=== PATIENT | female | born 1980 | race American Indian/Alaskan Native ===

== ENCOUNTER 2017-07-08 10:17 | Day surgery (SDC) | payer MEDICAID ==
[2017-07-08] MEDS ORDERED: HURRICAINE ONE 20% TOPICAL SPRAY MM NR (11:00)
--- NOTE | 2017-07-08 11:51 | Anesthesia Day of Surgery ---
Anesthesia Day of Surgery - Day of Surgery Patient Examined: Yes Patient H&P Reviewed: Yes Patient is NPO: Yes Beta Blockers: Yes
--- NOTE | 2017-07-08 11:51 | Anesthesia Consultation ---
Anesthesia Consult and Med Hx Date of service: 07/08/17 - Airway Anesthetic Teeth Evaluation: Good ROM Head & Neck: Adequate Mental/Hyoid Distance: Adequate Mallampati Class: Class II Intubation Access Assessment: Probably Good - Pulmonary Exam CTA: Yes - Cardiac Exam Cardiac Exam: RRR - Pre-Operative Health Status ASA Pre-Surgery Classification: ASA3 Proposed Anesthetic Plan: MAC - Pulmonary Hx Smoking: Yes Hx Asthma: No COPD: No Hx Pneumonia: Yes Hx Sleep Apnea: Yes - Cardiovascular System Hx Hypertension: Yes Hx Valvular Heart Disease: Yes (SEVERE MITRAL REGURG) Hx Heart Murmur: Yes (mitral valve regurgitation) - Central Nervous System Hx Psychiatric Problems: No - Endocrine Hx End Stage Renal Disease: No - Hematic Hx Anemia: Yes - Other Systems Hx Cancer: No Hx Obesity: Yes
[2017-07-08] MEDS ORDERED: NACL 0.9% 500 ML 500 ML IV SCH (12:00)
[2017-07-08] MEDS ORDERED: DIPRIVAN 10 MG/ML IV ONE ×3 (12:01)
[2017-07-08] MEDS ORDERED: XYLOCAINE MPF 2% ONE (12:02)
[2017-07-08] MEDS ORDERED: DILAUDID ONE (12:02)
[2017-07-08] MEDS ORDERED: VERSED ONE (12:02)
[2017-07-08 12:08] LABS: Basophils % (Auto) 0.4 % (0.0-1.8); Mean Corpuscular HGB Conc 30 % (30-34); Mean Corpuscular Volume 79 fl (79-97); Platelet Count 359 K/mm3 (140-440); Red Blood Count 4.34 M/mm3 (3.65-5.03); Red Cell Distribution Width 17.7 % (13.2-15.2)
[2017-07-08 12:13] LABS: Hematocrit 34.2 % (30.3-42.9); Hemoglobin 10.4 gm/dl (10.1-14.3); Mean Corpuscular Hemoglobin 24 pg (28-32)
[2017-07-08 12:17] LABS: INR 0.96 (0.87-1.13)
[2017-07-08 12:18] LABS: Partial Thromboplastin Time 42.5 Sec. (24.2-36.6)
[2017-07-08 12:20] LABS: Anion Gap 17 mmol/L; BUN/Creatinine Ratio 16.66; Blood Urea Nitrogen 10 mg/dL (7-17); Calcium 9.1 mg/dL (8.4-10.2); Carbon Dioxide 24 mmol/L (22-30); Chloride 105.3 mmol/L (98-107); Glucose 104 mg/dL (65-100); Potassium 4.6 mmol/L (3.6-5.0); Sodium 142 mmol/L (137-145)
[2017-07-08] MEDS ORDERED: NACL 0.9% 500 ML 500 ML ONE (12:25)
[2017-07-08] MEDS ORDERED: HURRICAINE ONE 20% TOPICAL SPRAY MM (12:26)
--- NOTE | 2017-07-08 14:24 | Post Anesthesia Evaluation ---
- Post Anesthesia Evaluation Patient Participated: Yes Airway Patent: Yes Stable Respiratory Function: Yes Nausea/Vomiting: No Temp > 96.8F: Yes Pain Manageable: Yes Adequeate Hydration: Yes Anesthesia Complications: No Block Receding Appropriately: Not Applicable Patient on Ventilator: No
[2017-07-08 16:07] VITALS: BP 155/98
== END 2017-07-08 16:00 | disposition home or self-care (01) ==
LOC: CATHLABREC 10:17 → EDSTATUS 11:00 → CATHLABREC 16:00
PROVIDERS: ATTEND Internal Medicine Cardiovascular Disease
DX: I50.32 Chronic diastolic (congestive) heart failure (principal); I34.2 Nonrheumatic mitral (valve) stenosis; I34.0 Nonrheumatic mitral (valve) insufficiency; I27.2 Other secondary pulmonary hypertension; E78.5 Hyperlipidemia, unspecified; E66.01 Morbid (severe) obesity due to excess calories; J44.9 Chronic obstructive pulmonary disease, unspecified; I11.0 Hypertensive heart disease with heart failure; G47.33 Obstructive sleep apnea (adult) (pediatric); Z88.8 Allergy status to other drugs, medicaments and biological substances; Z88.6 Allergy status to analgesic agent; Z87.891 Personal history of nicotine dependence; Z82.49 Family history of ischemic heart disease and other diseases of the circulatory system; Z83.3 Family history of diabetes mellitus
CPT/HCPCS: 36415; 80048; 85025; 85610; 85730; 93312; 93320; 93325; J1170; J2250; J2704; J7040

== ENCOUNTER 2017-08-31 13:59 | Emergency (ER) | payer MEDICAID ==
[2017-08-31 14:25] VITALS: BP 156/88
[2017-08-31 14:58] LABS: Basophils % (Auto) 0.3 % (0.0-1.8); Eosinophils % (Auto) 0.9 % (0.0-4.3); Hematocrit 35.7 % (30.3-42.9); Hemoglobin 10.9 gm/dl (10.1-14.3); Mean Corpuscular HGB Conc 31 % (30-34); Mean Corpuscular Volume 78 fl (79-97); Platelet Count 311 K/mm3 (140-440); Red Blood Count 4.58 M/mm3 (3.65-5.03); Red Cell Distribution Width 18.6 % (13.2-15.2); White Blood Count 12.1 K/mm3 (4.5-11.0)
[2017-08-31 15:02] LABS: Mean Corpuscular Hemoglobin 24 pg (28-32)
[2017-08-31 15:02] LABS: Albumin 3.9 g/dL (3.9-5); Albumin/Globulin Ratio 1.3 %; Alkaline Phosphatase 66 units/L (35-129); BUN/Creatinine Ratio 13; Blood Urea Nitrogen 8 mg/dL (7-17); Carbon Dioxide 25 mmol/L (22-30); Glucose 113 mg/dL (65-100); Sodium 141 mmol/L (137-145)
[2017-08-31 15:08] LABS: INR 0.86 (0.87-1.13)
[2017-08-31 15:09] LABS: Partial Thromboplastin Time 28.2 Sec. (24.2-36.6)
[2017-08-31 15:20] LABS: Alanine Aminotransferase 21 units/L (7-56); Anion Gap 18 mmol/L
[2017-08-31 15:21] LABS: Potassium 5.2 mmol/L (3.6-5.0)
== END 2017-08-31 19:40 | disposition left against medical advice (07) ==
LOC: ED 13:59
DX: R06.00 Dyspnea, unspecified (principal); R42 Dizziness and giddiness; Z53.21 Procedure and treatment not carried out due to patient leaving prior to being seen by health care provider
CPT/HCPCS: 36415; 80053; 84484; 85025; 85610; 85730; 93005; 93010

== ENCOUNTER 2018-02-15 15:04 | Outpatient (CLI) | payer MEDICAID ==
--- NOTE | 2018-02-16 12:39 | Mammography Report ---
BILATERAL DIGITAL SCREENING MAMMOGRAM WITH CAD:02/15/18 15:00:00 CLINICAL: Baseline screening. FINDINGS: Bilateral asymmetries with architectural distortion on the CC views require additional imaging. No mass or suspicious calcifications. IMPRESSION: Bilateral asymmetries requiring further workup. BI-RADS CATEGORY: 0 -- Needs Additional Imaging RECOMMENDATION: Recall for bilateral ML and spot magnification CC views and bilateral breast ultrasound if needed. ACR BI-RADS MAMMOGRAPHIC CODES: 0 = Needs additional imaging evaluation; 1 = Negative; 2 = Benign; 3 = Probably benign; 4 = Suspicious; 5 = Malignant; 6 = Known biopsy-proven malignancy COMMENT: 1. Dense breast tissue, i.e., adenosis, fibrocystic changes, etc., may obscure an underlying neoplasm. 2. Approximately 10% of cancers are not detected with mammography. 3. A negative mammography report should not delay biopsy if a clinically suspicious mass is present.
== END 2018-02-15 15:05 | disposition home or self-care (01) ==
LOC: MAMMO 15:04
PROVIDERS: ATTEND Family Medicine
DX: Z12.31 Encounter for screening mammogram for malignant neoplasm of breast (principal)
CPT/HCPCS: 77067

== ENCOUNTER 2018-03-15 14:35 | Outpatient (CLI) | payer MEDICAID ==
--- NOTE | 2018-03-15 16:45 | Mammography Report ---
BILATERAL DIGITAL DIAGNOSTIC MAMMOGRAM and RIGHT BREAST ULTRASOUND: 03/15/18 14:35:00 CLINICAL: Recalled for bilateral asymmetries. COMPARISON:02/15/18 baseline screening FINDINGS: Bilateral lateralmedial and spot magnification views were performed. Satisfactory effacement of the left asymmetry on the spot image and a negative left lateral view. A right CC spot magnification view demonstrates 2 spiculated asymmetries with architectural distortion in the outer breast and no definite correlation on MLO or lateral views. Ultrasound of the outer right breast was performed and demonstrated no mass or shadowing to correlate with the mammographic densities. IMPRESSION: Suspicious right outer asymmetries identified only on CC views with a negative ultrasound.Recommend right stereotactic breast biopsy. Negative left breast. BI-RADS CATEGORY: 4--Suspicious I was not able to speak to the patient but she was informed that I recommended a right stereotactic breast biopsy. ACR BI-RADS MAMMOGRAPHIC CODES: 0 = Needs additional imaging evaluation; 1 = Negative; 2 = Benign; 3 = Probably benign; 4 = Suspicious; 5 = Malignant; 6 = Known biopsy-proven malignancy COMMENT: 1. Dense breast tissue, i.e., adenosis, fibrocystic changes, etc., may obscure an underlying neoplasm. 2. Approximately 10% of cancers are not detected with mammography. 3. A negative mammography report should not delay biopsy if a clinically suspicious mass is present. COMMENT: Patient follow-up letters are generated via our [employer] application.
== END 2018-03-15 14:36 | disposition home or self-care (01) ==
LOC: MAMMO 14:35
PROVIDERS: ATTEND Family Medicine
DX: R92.8 Other abnormal and inconclusive findings on diagnostic imaging of breast (principal)
CPT/HCPCS: 77066